=== PATIENT | male | born 1985 | race Hispanic/Latino ===

== ENCOUNTER 2016-10-26 20:09 | Emergency (ER) | payer SELFPAY ==
[~2016-10-26] VITALS: Ht 180.3 cm; Wt 118.5 kg
[~2016-10-26 20:09] MED LIST: BACLOFEN10 MG PO; BENTYL20 MG PO; DIAZEPAM5 MG PO; DOCUSATE SODIU100 MG PO; ENOXAPARIN30 MG/0.3 SC; GABAPENTIN100 MG PO; HYDROCHLOROTHIA25 MG PO; MORPHINE SULFAT15 M1 PO; MOTRIN800 MG PO; OXYCONTIN15 MG PO; PEN-VEE K,VEET500 MG PO; PERCOCET 5/31 TABLET PO; SENNA LAX8.6 MG PO; TRAMADOL HCL50 MG PO; ZOFRAN ODT4 MG PO
[2016-10-26] MEDS ORDERED: HYDROCHLOROTHIA25 MG PO (21:44)
[2016-10-26] MEDS ORDERED: REGLAN10 MG PO (21:44)
[2016-10-26] MEDS ORDERED: FIORICET,ESG1 TABLET PO (21:44)
[2016-10-26 21:59] VITALS: BP 164/107
== END 2016-10-26 22:09 | disposition home or self-care (01) ==
LOC: EME 20:09
DX: G43.909 Migraine, unspecified, not intractable, without status migrainosus (principal); I10 Essential (primary) hypertension; T46.5X6A Underdosing of other antihypertensive drugs, initial encounter; Z91.138 Patient's unintentional underdosing of medication regimen for other reason; F17.200 Nicotine dependence, unspecified, uncomplicated
CPT/HCPCS: 71020; 87081; 87651 90; 93005; 99281; 99284; J1885

== ENCOUNTER 2017-12-01 16:55 | Emergency (ER) | payer OTHER ==
[~2017-12-01] VITALS: Ht 175.3 cm; Wt 106.3 kg
[~2017-12-01 16:55] MED LIST changes: +FIORICET,ESG1 TABLET PO; +REGLAN10 MG PO
[2017-12-01] MEDS ORDERED: TRAZODONE HCL50 MG PO (23:29)
[2017-12-01] MEDS ORDERED: CLONIDINE HCL0.1 MG PO (23:29)
[2017-12-01 23:43] LABS: CHLORIDE 102 mEq/L (99-109); POTASSIUM 3.9 mEq/L (3.7-5.4); SODIUM 141 mEq/L (136-147)
[2017-12-01 23:45] LABS: GLUCOSE 139 mg/dL (70-99); TOTAL PROTEIN 8.6 g/dL (6.4-8.3)
[2017-12-01 23:47] LABS: TOTAL BILIRUBIN 0.6 mg/dL (0.0-1.0)
[2017-12-01 23:48] LABS: ALKALINE PHOSPHATASE 81 IU/L (3-129)
[2017-12-01 23:49] LABS: CREATININE 1.2 mg/dL (0.6-1.3); GFR ESTIMATE (CALCULATED) > 59 mL/min/ (58.99-99999); HEMATOCRIT 45.2 % (38.0-50.0); HEMOGLOBIN 14.5 G/DL (12.5-16.6); MCH 22.2 PG (29.0-34.0); MCHC 32.1 G/DL (30.0-36.0); MCV 69.2 FL (86-99); PLATELET COUNT 325 K/uL (156-360); RBC DIS.WIDTH-CV 14.9 % (11.8-14.6); RBC DIS.WIDTH-SD 34.5 % (39-53); RED BLOOD COUNT 6.53 M/uL (4.00-5.50); WHITE BLOOD COUNT 14.1 K/uL (4.1-10.2)
[2017-12-01 23:50] LABS: AST (GOT) 26 IU/L (2-34); UREA NITROGEN (BUN) 11 mg/dL (9-23)
[2017-12-01 23:51] LABS: ALT (GPT) 27 IU/L (3-49)
[2017-12-01 23:52] LABS: LIPASE 52 U/L (1.0-51.0)
[2017-12-02] MEDS ORDERED: ZOFRAN ODT4 MG PO (02:53)
[2017-12-02 03:49] VITALS: BP 160/100
== END 2017-12-02 03:50 | disposition home or self-care (01) ==
LOC: EME 16:55
PROVIDERS: Emergency Medicine
DX: F11.23 Opioid dependence with withdrawal (principal); R11.2 Nausea with vomiting, unspecified; R19.7 Diarrhea, unspecified; M54.5 Low back pain; I10 Essential (primary) hypertension; Z72.0 Tobacco use
CPT/HCPCS: 80053; 83690; 85027; 99281; 99285; J1630; J2060; J2250; J2405